=== PATIENT | female | born 1950 | race Caucasian/White ===

== ENCOUNTER → 2017-06-14 | Day surgery (SDC) | payer MEDICARE ==
--- NOTE | 2017-06-14 09:02 | MMO ---
STEREOTACTIC GUIDED BIOPSY RIGHT BREAST MICROCALCIFICATIONS SURGICAL SPECIMEN MAMMOGRAPHY RIGHT DIAGNOSTIC MAMMOGRAM POST BIOPSY: History: Abnormal mammograms. Microcalcifications. FINDINGS: After explaining the procedure and answering all questions, the microcalcification cluster at the med ial aspect of the right breast was visualized. Sterile technique, buffered local anesthesia, stereota ctic guidance, and a medial approach were used to carefully advance a 10 gauge stereotactic needle to the level of the microcalcifications. 8 vacuum assisted specimens were obtained. Surgical specimen mammography shows microcalcifications in the specimen. Localization clip is placed in the biopsy bed and position was confirmed with stereotactic imaging. N eedle was removed. Patient tolerated the procedure well and was dismissed in good condition. Post procedure diagnostic right mammogram shows localization clip at the anterior inferior aspect of the right breast. Small pockets of gas are consistent with recent biopsy. Microcalcifications are no longer visible. IMPRESSION: 1. Technically successful stereotactic guided biopsy right breast microcalcifications. 2. Pathology is pending. POS: [facility]
== END ==
LOC: MAMMO 06:53
PROVIDERS: ATTEND Internal Medicine
DX: N60.11 Diffuse cystic mastopathy of right breast (principal); N60.81 Other benign mammary dysplasias of right breast; N60.89 Other benign mammary dysplasias of unspecified breast
CPT/HCPCS: 19081; 76098; 88305; G0206

== ENCOUNTER 2018-01-03 02:07 | Emergency (ER) | payer MEDICARE | END 2018-01-03 03:08 | disposition home or self-care (01) | LOC: ERS 02:07 | DX: H72.92 Unspecified perforation of tympanic membrane, left ear (principal); I10 Essential (primary) hypertension | CPT/HCPCS: 99282 ==